=== PATIENT | male | born 1950 | race African-American/Black ===

== ENCOUNTER 2017-07-04 17:44 | Inpatient (IN) | payer MEDICAID, OTHER ==
[~2017-07-04] VITALS: Ht 172.7 cm; Wt 81.2 kg
--- NOTE | 2017-07-04 17:50 | NUR ---
PT BIBRA TO ER BED 12 C/O DIFFUSE ABDOMINAL PAIN W/ NAUSEA AND VOMITING X 2 DAYS. COFFEE GROUND EMESIS NOTED. GOWNED AND PLACED ON MONITOR. STABLE VITALS PATIENT PARTNER. AWAITING MD HONEYCUTT.
--- NOTE | 2017-07-04 17:56 | NUR ---
DR SCOTT AT BEDSIDE FOR EVAL.
[2017-07-04] MEDS ORDERED: ONDA4TAB5 PO (18:22)
[2017-07-04] MEDS ORDERED: BLOO-668 IN (18:22)
[2017-07-04] MEDS ORDERED: HYDR-548 PO (18:22)
[2017-07-04] MEDS ORDERED: CARV12.52 PO (18:22)
[2017-07-04] MEDS ORDERED: ACET-868 PO (18:22)
[2017-07-04] MEDS ORDERED: ZOLP10TA6 PO (18:22)
[2017-07-04] MEDS ORDERED: TRAM50TA2 PO (18:22)
--- NOTE | 2017-07-04 18:50 | NUR ---
PT TO RADIOLOGY FOR ABDOMINAL CT SCAN VIA [facility].
[2017-07-04 18:58] LABS: HEMATOCRIT 38 % (39-51); HEMOGLOBIN 11.9 g/dL (13.5-17.5); LYMPHOCYTES # (AUTO) 0.3 /CMM (0.8-4.8); LYMPHOCYTES % (AUTO) 2.2 % (20.0-44.0); MEAN CORPUSCULAR HEMOGLOBIN 28 PG (26.0-33.0); MEAN CORPUSCULAR HGB CONC 32 g/dl (31.0-36.0); MEAN CORPUSCULAR VOLUME 88 fL (80-96); MONOCYTES # (AUTO) 0.7 /CMM (0.1-1.30); MONOCYTES % (AUTO) 5.1 % (2.0-12.0); NEUTROPHILS # (AUTO) 11.9 /CMM (1.8-8.9); NEUTROPHILS % (AUTO) 92.7 % (43.0-81.0); PLATELET COUNT (AUTO) 261 /CMM (150-450); RDW COEFFICIENT OF VARIATION 13.8 (11.5-15.0); RED BLOOD CELL COUNT(AUTO) 4.26 MIL/uL (4.5-6.0); WHITE BLOOD COUNT (AUTO) 12.8 K/uL (4.3-11.0)
[2017-07-04] MEDS ORDERED: INSU100V7 SQ (19:06)
[2017-07-04] MEDS ORDERED: HUM10VIA SQ (19:06)
[2017-07-04] MEDS ORDERED: TAMS0.4C34 PO (19:08)
--- NOTE | 2017-07-04 19:08 | NUR ---
RADIOLOGY AT BEDSIDE FOR CHEST XRAY.
[2017-07-04 19:15] LABS: INR 0.97 (0.87-1.13); PROTHROMBIN TIME 10.1 SECS (9.5-12.7)
[2017-07-04 19:20] LABS: TROPONIN I 0.126 ng/mL (0.00-0.056)
[2017-07-04 19:22] LABS: BILIRUBIN,DIRECT 0.2 mg/dL (0.0-0.2); BILIRUBIN,TOTAL 0.8 mg/dL (0.2-1.0); CALCIUM, SERUM 9.3 mg/dL (8.5-10.1); CREATININE 2.5 mg/dL (0.6-1.3); TOTAL PROTEIN, SERUM 7.6 g/dL (6.4-8.2)
--- NOTE | 2017-07-04 19:54 | NUR ---
RT AT BEDSIDE FOR ABG DRAW.
--- NOTE | 2017-07-04 19:55 | NUR ---
VERIFIED INSULIN DOSE WITH EBENEZER JEFFERS
[2017-07-04 20:09] LABS: ABG BASE EXCESS -18.9 mmol/L; ABG OXYGEN SATURATION 95.5 % (92.0-98.5); ABG PCO2 22.6 mmHg (35.0-45.0); ABG PH 7.165 (7.350-7.450); ABG PO2 102.5 mmHg (75.0-100.0); AaDO2 20.2 mmHg; MetHb 0.4 % (0.0-1.5); O2Hb 94.2 % (94.0-97.0); SITE, ABG Right Radial; VENT MODE, BG Room Air
--- NOTE | 2017-07-04 20:10 | NUR ---
CALLED MACHINE MAINTENANCE SUPERVISOR FOR ICU BED.
--- NOTE | 2017-07-04 20:12 | NUR ---
ICU 255
--- NOTE | 2017-07-04 21:18 | NUR ---
REPORT GIVEN TO ED. PT AWAITING TRANSFER TO [facility].
--- NOTE | 2017-07-04 21:20 | NUR ---
IV ZOSYN NOT ADMINISTERED. ENDORSED TO ICU CHARGE NURSE ED.
[2017-07-04 21:54] LABS: MAGNESIUM 2.1 mg/dL (1.8-2.4); PHOSPHORUS 6.9 mg/dL (2.5-4.9)
[2017-07-04 22:00] VITALS: BP 109/67
--- NOTE | 2017-07-04 22:47 | NUR ---
STEEL SHOT HEADER OPERATOR. ADMISSION. RECEIVED THE PT FROM ER VIA [facility]. ADMITTING DIAGNOSIS DKA.PT IS LETHARGIC. INSULIN DRIP STARTED FROM ER. PT AWAKE, ALERT, FOLLOW COMMANDS. RN CALL CENTER SHOWING S TACH. RATE IS AT THIS TIME 113. IV RT EJ 20G. IVF NS 125ML/H FC PATENT. RT BKA,LT KNEE SCAB, LT FOOT AMPUTATION.WILL CONTINUE TO MONITOR VITALS.
[2017-07-04 22:53] VITALS: BP 114/60
[2017-07-04 23:00] VITALS: BP 115/81
[2017-07-05] VITALS (25 sets, daily range): BP systolic 90–128; BP diastolic 23–86
--- NOTE | 2017-07-05 01:49 | NUR ---
GUM SPRAYER. LAB CALLED FOR TROPONIN AND LACTIC ACID REPORT. RESULT DR LE MADE AWARE. NEW ORDER RECEIVED.
--- NOTE | 2017-07-05 01:51 | NUR ---
MUSICAL INSTRUMENT MECHANIC. EKG DONE PER MD ORDER
--- NOTE | 2017-07-05 02:00 | NUR ---
CASH REGISTER SERVICER. INSULIN DRIP ALGORITHM#3.
--- NOTE | 2017-07-05 02:37 | NUR ---
MARKET RESEARCH CONSULTANT. PT IS HEARD STICK. CALLADRIANA WRIGHT MD FOR CENTRAL LINE. DR LE ORDER HEPARIN DRIP.
--- NOTE | 2017-07-05 02:39 | NUR ---
CABLE ASSEMBLER AND SWAGER. ER MD BULOLCK INSERTED RT UPPER ARM ANGIO CATH PERIPHERAL IV 18G DURING PROCEDURE NO COMPLICATION NOTED. PROCEDURE PT TOLERATED WELL.HEPARIN DRIP STARTED PER PROTOCOL IV BOLUS HEPARIN 5000UNITS GIVEN PER MD ORDERED.
--- NOTE | 2017-07-05 02:59 | NUR ---
BANK MANAGER. AM CARE, LORAL CARE, BED BATH GIVEN. LINEN CHANGED, REMAINING SAME BIPAP SETTINGS TOLERATED WELL. SAT 98%. PERSONNEL ADMINISTRATOR SHOWING S TACH. RATE IS 105. IV RT HAND 20G. THO @5ML/H. HOB ELEVATED. FC PATENT, URINE DRAINING, AFEBRILE. WILL CONTINUE TO MONITOR VITALS. Addendum: 07/05/17 at 0307 by MARA COREA RN WRONG INFORMATION
--- NOTE | 2017-07-05 03:59 | NUR ---
BEHAVIORAL SCIENTIST. AM CARE. ORAL CARE, BED BATH GIVEN. LINEN CHANGED, OXYGEN 2L VIA NASAL CANNULA. SAT 98%, NO ACUTE DISTRESS NOTED. PATIENT FINANCIAL REPRESENTATIVE SHOWING S TACH. IV RT UPPER ARM 18G, RT EJ 20G. IVF NS 125ML/H, INSULIN DRIP PER ACCU CHECK. HEPARIN DRIP . 1000U/H HOB ELEVATED. TURN AND REPOSITION Q2H. WILL CONTINUE TO MONITOR VITALS. AFEBRILE, NPO.
--- NOTE | 2017-07-05 04:21 | NUR ---
BIKE SHOP MANAGER. INSULIN DRIP USING FROM 0400 ALGORITHM #2. BLOOD SUGAR NOW 255
[2017-07-05 04:36] LABS: BASOPHILS % (AUTO) 0.4 % (0.0-2.0); HEMATOCRIT 32 % (39-51); HEMOGLOBIN 10.8 g/dL (13.5-17.5); LYMPHOCYTES # (AUTO) 0.5 /CMM (0.8-4.8); LYMPHOCYTES % (AUTO) 5.2 % (20.0-44.0); MEAN CORPUSCULAR HEMOGLOBIN 29 PG (26.0-33.0); MEAN CORPUSCULAR HGB CONC 34 g/dl (31.0-36.0); MEAN CORPUSCULAR VOLUME 86 fL (80-96); MONOCYTES # (AUTO) 0.8 /CMM (0.1-1.30); MONOCYTES % (AUTO) 8.3 % (2.0-12.0); NEUTROPHILS # (AUTO) 8.1 /CMM (1.8-8.9); NEUTROPHILS % (AUTO) 86.1 % (43.0-81.0); PLATELET COUNT (AUTO) 231 /CMM (150-450); RDW COEFFICIENT OF VARIATION 13.6 (11.5-15.0); RED BLOOD CELL COUNT(AUTO) 3.75 MIL/uL (4.5-6.0); WHITE BLOOD COUNT (AUTO) 9.4 K/uL (4.3-11.0)
[2017-07-05 04:47] LABS: CALCIUM, SERUM 8.1 mg/dL (8.5-10.1); CREATININE 2.3 mg/dL (0.6-1.3); POTASSIUM 4.2 mmol/L (3.5-5.1)
[2017-07-05 05:31] LABS: TROPONIN I 18.39 ng/mL (0.00-0.056)
--- NOTE | 2017-07-05 06:16 | NUR ---
[facility] LAB CALLED FOR CRITICAL TROPONIN [phone] LE MADE AWARE. NEW ORDER RECEIVED.
--- NOTE | 2017-07-05 06:37 | NUR ---
LABOR ECONOMIST. INSULIN DRIP SCANNED AT 2353. {07/04/17} BLOOD SUGAR WAS 445. SPREAD SHEET DOCUMENTATION WRONG. STARTED INSULIN DRIP 7UNITS/H.
--- NOTE | 2017-07-05 07:45 | NUR ---
ICU/RN - Initial Notes Received pt in bed, alert and oriented x3. Respirations are even and unlabored, on O2 @ 2lpm via nasal cannula. Denies pain and chest pain at this time. On tele reading SR 99. Currently on Insulin gtt and Heparin as ordered. Salguero catheter intact draining urine to gravity. Pt kept NPO as ordered. IVF infusing well. Right BKA and Left AKA noted. Pt with right sided weakness (Hx CVA). Safety and comfort measures in place. Will continue to monitor pt closely.
--- NOTE | 2017-07-05 08:20 | NUR ---
ICU/RN - Notes PTT 60, no change in Heparin gtt rate per protocol. PTT ordered for tomorrow 07/06/17 at 0800 per protocol.
[2017-07-05 09:36] LABS: CREATININE 2.1 mg/dL (0.6-1.3); POTASSIUM 4.2 mmol/L (3.5-5.1)
[2017-07-05 11:20] LABS: APPEARANCE,URINE SL CLOUDY (CLEAR); BILIRUBIN,URINE 1+ (NEGATIVE); BLOOD, URINE 2+ Ery/uL (NEGATIVE); COLOR,URINE YELLOW (YELLOW); KETONES,URINE 1+ (NEGATIVE); LEUKOCYTE ESTERASE ,URINE NEGATIVE (NEGATIVE); NITRITE, URINE NEGATIVE (NEGATIVE); PH,URINE 5.5 (5.0-8.0); PROTEIN,URINE 1+ mg/dl (NEGATIVE); UGLUCOSE NEGATIVE (NEGATIVE); UROBILINOGEN,URINE 0.2 EU/dL (0.2)
[2017-07-05 11:32] LABS: BACTERIA,URINE Few /HPF (None Seen); SQUAMOUS EPITHELIAL CELL,UR Few /HPF (None Seen); WBC,URINE 0-2 /HPF (0-3)
--- NOTE | 2017-07-05 13:25 | NUR ---
ICU/RN - Notes Insulin gtt stopped as ordered by Dr Lagos. Pt ate lunch and was restarted on home insulin dosing as ordered - Novolin 70/30 15 units TID and Levemir 15 units daily. Latest blood sugar 200 mg/dL. Blood sugar check ordered change to every four hours. Will carry out and continue to monitor pt.
--- NOTE | 2017-07-05 15:13 | NUR ---
ICU/RN - Notes Around 1350, patient complained about sharp rectum pain on pain scale 10 out of 10, with facial grimacing and irritability. Rectum assessed with no issues found. Pt requested medication for pain medication initially, but upon preparing medication prior to administration, pt last minute refused, stating "I don't want Morphine." Pt's pain immediately subsided and disappeared shortly after statement. Morphine 2mg IVP never given. Medication wasted and witnessed by second RN. At this time pt has no other complaints of pain, resting comfortably in no distress.
--- NOTE | 2017-07-05 18:45 | NUR ---
ICU/RN - Notes Pt eating dinner in no acute distress.
--- NOTE | 2017-07-05 20:39 | NUR ---
received pt from day shift, a/o x4, follows commands, SR, on 2L 02 sat well, lungs clear, no edema, on heparin drip at 1000unit, no bleeding or bruises noted, f/c out per pt request, MD aware, tolerates diet, v/s stable, no pain, pt turned and repositioned.
[2017-07-06] VITALS (21 sets, daily range): BP systolic 73–161; BP diastolic 49–98
--- NOTE | 2017-07-06 00:17 | NUR ---
pt is resting in the bed, on heparin drip at 1000unit, v/s stable, no pain, pt turned and repositioned.
--- NOTE | 2017-07-06 04:21 | NUR ---
pt is resting in the bed, no acute distress overnight, on heparin drip at 1000unit, no bleeding noted, good urine output, v/s stable, no pain, pt cleaned, changed and repositioned q2hrs.
[2017-07-06 05:04] LABS: BASOPHILS % (AUTO) 0.2 % (0.0-2.0); EOSINOPHILS # (AUTO) 0.4 /CMM (0.0-0.7); EOSINOPHILS % (AUTO) 6.1 % (0.0-6.0); HEMATOCRIT 35 % (39-51); HEMOGLOBIN 11.4 g/dL (13.5-17.5); LYMPHOCYTES # (AUTO) 0.7 /CMM (0.8-4.8); LYMPHOCYTES % (AUTO) 10.2 % (20.0-44.0); MEAN CORPUSCULAR HEMOGLOBIN 29 PG (26.0-33.0); MEAN CORPUSCULAR HGB CONC 33 g/dl (31.0-36.0); MEAN CORPUSCULAR VOLUME 86 fL (80-96); MONOCYTES # (AUTO) 0.6 /CMM (0.1-1.30); MONOCYTES % (AUTO) 8.5 % (2.0-12.0); NEUTROPHILS # (AUTO) 5.3 /CMM (1.8-8.9); PLATELET COUNT (AUTO) 196 /CMM (150-450); RDW COEFFICIENT OF VARIATION 14.1 (11.5-15.0); RED BLOOD CELL COUNT(AUTO) 4.02 MIL/uL (4.5-6.0)
[2017-07-06 05:09] LABS: CALCIUM, SERUM 7.9 mg/dL (8.5-10.1); CREATININE 1.8 mg/dL (0.6-1.3); MAGNESIUM 1.8 mg/dL (1.8-2.4); PHOSPHORUS 2.9 mg/dL (2.5-4.9); POTASSIUM 3.9 mmol/L (3.5-5.1)
--- NOTE | 2017-07-06 07:10 | NUR ---
TRANSPORTER RADIOLOGY- RECEIVED PT A/O X4. ON 2L NC, RESPIRATIONS EVEN & UNLABORED, NO SOB OR DISTRESS PRESENT. BEDSIDE MONITOR REVEALS SINUS RHYTHM. PT CONTINENT OF URINE & STOOL, URINAL AT BEDSIDE. AMANDA MIDLINE RUNNING D5 1/2NS @ 100 MLS/HR AND HEPARIN GTT AT 1000 UNITS/HR. REJ 20G HL FLUSHED, PATENT AND INTACT. SAFETY MEASURES TAKEN: BED LOCKED AND IN LOW POSITION, SIDE RAILS UP X2, BED ALARM ON AND CALL LIGHT WITHIN REACH, WILL CONTINUE TO MONITOR.
--- NOTE | 2017-07-06 08:00 | NUR ---
HEALTH CARE LIAISON- PTT RESULT=54. NO CHANGES IN HEPARIN RATE. HEPARIN GTT CONTINUES AT 1000 UNITS/HOUR. WILL CONTINUE TO MONITOR.
--- NOTE | 2017-07-06 10:25 | NUR ---
SW received a call from ICU CRN Genoveva x [phone] informing SW that pt. is wanting to go AMA and wants to speak with the social media strategist. SW met with pt. bedside. Pt. is alert and oriented x4. Pt. appears to be upset stating that the doctor's did not communicate with him that he might need to transfer to another hospital. SW provided emotional support to pt. Pt. stated he wants to get the phone number to [facility] to change his doctor's appointment. DINH gave pt. [facility]'s contact number . Pt. seem to calm down and was appreciative to get the phone number.
--- NOTE | 2017-07-06 17:00 | NUR ---
TIRE VULCANIZER- SPOKE TO DR. VANN. PT STABLE FOR DOWNGRADE TO TELE. ORDER PLACED. WILL CONTINUE TO MONITOR.
--- NOTE | 2017-07-06 18:00 | NUR ---
ORTHOPEDIC PHYSICAL THERAPIST- REPORT GIVEN TO EDELMIRA SOL. PT TO TRANSFER TO TELE. 1845- PT TRANSFERRED TO TELE ROOM 114-1. ALL BELONGINGS SENT WITH PATIENT.
--- NOTE | 2017-07-06 20:00 | NUR ---
LATEX RIBBON MACHINE OPERATOR NOTE PT IN BED SITTING UP, A/O X 3, NO SOB, NO DISTRESS NOTED. BUT C/O PAIN IN RT HIP 01/12, BUT REFUSING TO TAKE ANY PAIN MED AT THIS TIME. ON TELE SR 97. ON HEPARIN DRIP 1000U/HR = 20 ML/HR AT RAC MIDLINE #18, NO S/S OF INFILTRATION NOTED. RIJ #20G S/L INTACT AND PATENT. SIDE RAILS UP X 2 AND CALL LIGHT WITHIN REACH. VSS. CONTINUE TO MONITOR HIM.
--- NOTE | 2017-07-06 21:00 | NUR ---
LEATHER CASE FINISHER NOTE DR VANN VISITED THE PT AND DISCUSSED WITH THE PT REGARDING ANGIO GRAM.
--- NOTE | 2017-07-06 21:20 | NUR ---
HOUSE CARPENTER NOTE PT REQUESTING FOR BENADRYL WHICH HELP HIM SLEEP. DR LE CALLED AND RECEIVED NEW ORDER, ORDER NOTED AND CARRIED OUT. BENADRYL 25 MG PO GIVEN FOR SLEEP WITH HS MEDS. ALSO GIVEN HS SNACKS.
--- NOTE | 2017-07-06 22:20 | NUR ---
MANAGER APPLICATION NOTE PT FALL BACK TO SLEEP, NO DISTRESS OR DISCOMFORT NOTED.
[2017-07-07] VITALS: BP 120/70
[2017-07-07 04:00] VITALS: BP 143/86
--- NOTE | 2017-07-07 06:36 | NUR ---
OPTICAL FABRICATION TECHNICIAN NOTE PT IN BED ASLEEP, AROUSABLE. NO DISTRESS OR DISCOMFORT NOTED. DENIES PAIN. HEPARIN DRIP INFUSING WELL 20 ML/HR = 1000UNITS /HR. .ALSO GETTING D5 1/2 NS AT 100 ML/HR, NO S/S OF INFILTRATION NOTED. ON TELE SR HR 85. SIDE RAILS UP X 2 AND CALL LIGHT WITHIN REACH. WILL ENDORSE TO DAY SHIFT NURSE FOR CONTINUE TO CARE.
[2017-07-07 07:43] LABS: BASOPHILS % (AUTO) 0.2 % (0.0-2.0); EOSINOPHILS # (AUTO) 0.6 /CMM (0.0-0.7); EOSINOPHILS % (AUTO) 10.8 % (0.0-6.0); HEMATOCRIT 38 % (39-51); HEMOGLOBIN 12.4 g/dL (13.5-17.5); LYMPHOCYTES # (AUTO) 1.1 /CMM (0.8-4.8); LYMPHOCYTES % (AUTO) 22.2 % (20.0-44.0); MEAN CORPUSCULAR HEMOGLOBIN 28 PG (26.0-33.0); MEAN CORPUSCULAR HGB CONC 33 g/dl (31.0-36.0); MEAN CORPUSCULAR VOLUME 86 fL (80-96); MONOCYTES # (AUTO) 0.7 /CMM (0.1-1.30); MONOCYTES % (AUTO) 13.4 % (2.0-12.0); NEUTROPHILS # (AUTO) 2.7 /CMM (1.8-8.9); NEUTROPHILS % (AUTO) 53.4 % (43.0-81.0); PLATELET COUNT (AUTO) 190 /CMM (150-450); RDW COEFFICIENT OF VARIATION 13.5 (11.5-15.0); RED BLOOD CELL COUNT(AUTO) 4.39 MIL/uL (4.5-6.0); WHITE BLOOD COUNT (AUTO) 5.1 K/uL (4.3-11.0)
[2017-07-07 07:55] LABS: CALCIUM, SERUM 8.3 mg/dL (8.5-10.1); CREATININE 1.6 mg/dL (0.6-1.3); MAGNESIUM 1.5 mg/dL (1.8-2.4); PHOSPHORUS 3.1 mg/dL (2.5-4.9); POTASSIUM 4.3 mmol/L (3.5-5.1)
[2017-07-07 08:00] VITALS: BP 143/82
--- NOTE | 2017-07-07 08:00 | NUR ---
INITIAL APPEALS COORDINATOR NOTE RECEIVED PT IN BED SLEEPING , PT IS HOWEVER A/O X 3 UPON INTRODUCTION , NO SOB, NO DISTRESS NOTED.NO PAIN STATED AT THIS TIME. ON HEPARIN DRIP 1000U/HR = 20 ML/HR AT RAC MIDLINE #18, NO S/S OF INFILTRATION NOTED. RIJ #20G S/L INTACT AND PATENT. SIDE RAILS UP X 2 AND CALL LIGHT WITHIN REACH. RN WILL CONTINUE TO MONITOR PATIENT THROUGHOUT THE DAY
--- NOTE | 2017-07-07 10:09 | NUR ---
Rn Note Rn asked charge nurse Isabell about completing core measures for nonstemi patient advised to complete the chest pain section - rn complete information to the best of her knowledge with the help of the charge nurse
[2017-07-07 12:00] VITALS: BP 145/90
[2017-07-07 16:00] VITALS: BP 127/79
--- NOTE | 2017-07-07 16:37 | NUR ---
RN NOTE LOUISE GONZALEZ SPOKE WITH PATIENT IN REGARDS TO CHANGING INSULIN COVERAGE DUE TO CURRENT PLAN COVERAGE NOT BEING ADEQUATE PATIENT REFUSES TO CHANGE CURRENT PLAN PATIENT INSIST ON SPEAKING WITH MD BOJORQUEZ IN REGARDS TO LEAVING , PLAN OF CARE DISCUSSED WITH THE PATIENT VIA RN AND LOUISE GONZALEZ HOWEVER PATIENT IS NOT OK WITH RESPONSE FROM EITHER CONSTITUTION PARTY. MD BOJORQUEZ STATES HE WILL CONTACT PATIENT PRIOR TO LEAVING FLOOR TODAY PATIENT UPDATED
--- NOTE | 2017-07-07 18:44 | NUR ---
RN NOTE PATIENT STABLE THROUGHOUT THE SHIFT MULTIPLE COMPLAINTS NOTED , PATIENT REQUESTING TO LEAVE AFTER KIDNEY FUNCTION NORMALIZE , HOWEVER PATIENT IS STABLE NO SOB NOTED PATIENT OOK NASAL CANULA OFF , PATIENT IS CURRENTLY IN BED RESTING ALL NEEDS ATTENDED , RN WILL ENDORSE CONTINUATION OF CARE.
--- NOTE | 2017-07-07 19:12 | NUR ---
RN NOTE PATIENT HEPARIN BAG CHANGED AND 2 NURSE VERIFIED
[2017-07-07 20:00] VITALS: BP_SYST 132; BP_SYST 136; BP_DIAS 86
[2017-07-08] VITALS: BP 113/70
[2017-07-08 04:00] VITALS: BP 116/82
[2017-07-08 08:00] VITALS: BP 144/68
[2017-07-08 12:00] VITALS: BP 142/90
--- NOTE | 2017-07-08 13:19 | NUR ---
RN NOTE EARL GONZALEZ AT NURSES STATION MADE AWARE PATIENT WANTS TO SPEAK TO HIM ABOUT MEDICATION REGIMEN. CURATORIAL SPECIALIST ALSO AWARE OF BLOOD SUGAR RESULT TODAY. CURRENTLY PATIENT RESTING IN BED COMFORTABLE, HEPARIN DRIP CONTINUED. NO BLEEDING NOTED AFTER ASSESSING ALL ORIFICES. NO NEW BRUISING.
[2017-07-08 16:00] VITALS: BP 96/63
[2017-07-08 20:00] VITALS: BP 133/79
--- NOTE | 2017-07-08 20:00 | NUR ---
COMMISSION CLERK NOTES RECEIVED PTS ON BED AWAKE ALERT ANS RESPONSIVE ABLE TO MAKE NEEDS KNOWN , ON R/A SATING 98%NO SOB NO DISTRESS NOTED, ON TELE SR ON THE MONITOR , ON IVF OF RAC G%20 WITH HEPARIN DRIP AT 23ML /HR 1150 UNITS , INFUSING WELL. LAST APTT ENDORSE IS 48 -NO CHANGE , TO DO APTT IN AM (5AM)V/S STABLE AFEBRILE.DUE MEDS GIVEN ORDERED ALL NEEDS ATTENDED TOO CALL LIGHT WITHIN REACH , KEPT PTS CLEAN DRY AND COMFORTABLE.WILL CONTINUE TO MONITOR PTS.
--- NOTE | 2017-07-08 20:30 | NUR ---
COOK SHIP NOTES BLOOD SUGAR FOR 2000HRS IS 153 MG/DL NO COVERAGE GIVEN.
[2017-07-09] VITALS (7 sets, daily range): BP systolic 89–129; BP diastolic 53–87
--- NOTE | 2017-07-09 04:34 | NUR ---
FABRIC AND ACCESSORIES ESTIMATOR NOTES IV HEPLOCK REINSERTED ON LFA WITH G#20 INTACT AND PATENT .AT 1AM BLOOD SUGAR CHECK IS 156 MG/DL NO COVERAGE GIVEN . PTS V/S STABLE /AFEBRILE NO COMPLAIN OF PAIN NOTED , WILL CONTINUE TO MONITOR PTS.
--- NOTE | 2017-07-09 05:00 | NUR ---
telegraph office route aide notes blood sugar for 5am is 170mg/dl no coverage given , pts remains on heparin drip at 1150 units/23ml/hr , awaiting for 5am appt result will endorse to rn day shift for continuity of care.
[2017-07-09 07:14] LABS: CALCIUM, SERUM 8.7 mg/dL (8.5-10.1); CREATININE 1.6 mg/dL (0.6-1.3); POTASSIUM 4.6 mmol/L (3.5-5.1)
--- NOTE | 2017-07-09 08:08 | NUR ---
INITIAL INDUSTRIAL CUSTODIAN NOTE RECEIVED PT IN BED AWAKE AND ALERT X 3 UPON , NO SOB, NO DISTRESS NOTED.NO PAIN STATED AT THIS TIME. ON HEPARIN DRIP 1000U/HR = 23 ML/HR AT LFA 20G, NO S/S OF INFILTRATION NOTED. RIJ #20G S/L INTACT AND PATENT. SIDE RAILS UP X 2 AND CALL LIGHT WITHIN REACH. RN WILL CONTINUE TO MONITOR PATIENT THROUGHOUT THE DAY
--- NOTE | 2017-07-09 10:52 | NUR ---
RN NOTE RN RECEIVED CALL FROM PHARMACY IN REGARDS TO ORDERING HEPARIN BOLUS FOR PATIENT , HEPARIN BOLUS 4800 ORDERED AND RATE CHANGED TO 1400ML/HR. CHARGE NURSE HELPED ASSESS WITH BOLUS ORDERING AND RATE CHANGE , RN WILL CONTINUE TO FOLLOW.
--- NOTE | 2017-07-09 18:40 | NUR ---
RN NOTE PHARMACIST CAME IN TO CHECK THE PATIENTS HEPARIN DRIP, DRIP CURRENTLY RUNNING HOWEVER PATIENT PTT HAS DECREASED TO 26 . PHARMACIST ASK QUESTION IN REGARD TO MEDICATION BEING HELP RN INFORMED PHARMACIST THAT HEPARIN HELD FOR APPROXIMATELY 15-20MIN TO ALLOW PATIENT BATHROOM PRIVILEGES DUE DUE TO PATIENT COMPLAINING OF LACK OF BM FOR 4 DAYS , PATIENT INITIAL STICK PATIENT WAS STUCK ON LEFT ARM UNDER IV SITE , WHILE HEPARIN DRIP WAS OFF FOR THE 15-20 MINS. NEW PTT LEVEL DRAWN AWAITING LABS . ALSO NOTED PATIENT HEPARIN RUNNING THROUGH NEW PERIPHERAL LINE ON LEFT FORE ARM PREVIOUS TO TODAY PATIENT HEPARIN RAN ON RIGHT MIDLINE , RN NOTIFIED PHARMACIST AND ALSO THE CHARGE NURSE . RN WILL SWITH THE INFUSION SITE CURRENTLY . PATIENT HAS NO SIGNS OF INFILTRATION OR PAIN NOTED
--- NOTE | 2017-07-09 18:53 | NUR ---
EMBOSSING CLERK CLOSING NOTE PATIENT STABLE THROUGHOUT THE DAY NO COMPLAINTS EXPRESSED PATIENT SEAT UP IN WHEELCHAIR, ALSO WENT TO THE BATHROOM FOR BM AFTER 4 DAY OF CONSTIPATION. PATIENT EXPRESS FEELING BETTER. PATIENT IN BED AWAKE AND ALL NEEDS MEET RN WILL CONTINUE TO FOLLW INDEPENT IN BED MOBLITY , RN WILL ENDORSE TO PM RN.
--- NOTE | 2017-07-09 19:30 | NUR ---
METER ENGINEER INITIAL NOTES RECEIVED PATIENT AWAKE A/OX3, SITTING AT EDGE OF BED, ABLE TO MAKE NEEDS KNOWN. DENIES PAIN OR DISCOMFORT AT THIS TIME. DENIES SOB. ON TELE MONITOR SR. NO S/S OF BLEEDING NOTED AT THIS TIME. SKIN WARM AND DRY TO TOUCH. WITH HEPARIN DRIP AT 1650 UNITS/HR. SIDE RAILS UP AND LOCKED. BED KEPT AT LOWEST POSITION. CALL LIGHT KEPT WITHIN EASY REACH. WILL CONTINUE TO MONITOR.
--- NOTE | 2017-07-09 19:57 | NUR ---
RN NOTE PATIENT PTT 25 BOLUS 4800 ORDERED AND INCREASED RATE TO 1650 2 NURSE VERIFY , MISHEL RN INFORMED PM RN TO NOTIFIED PATIENT PROVIDER OF THIS DERCREASED PTT, CHARGE NURSE SOON AWARE.
--- NOTE | 2017-07-09 20:07 | NUR ---
RN NOTE RN CONTACTED GRANTS AND CONTRACTS ASSISTANT EARL GONZALEZ AN INFORMED HIM OF PATIENT PTT LEVEL AND THE INCREASE IN HEPARIN DRIP ALONG WITH 4800 BOLUS, GRANTS AND CONTRACTS ASSISTANT ACKNOWLEDGED UNDERSTANDING AND AGREE WITH ORDERS PM RN NOTIFIED CHARGE NURSE SOON NOTIFIED
--- NOTE | 2017-07-09 20:50 | NUR ---
CASH GRAIN GROWER NOTES PATIENT C/O PAIN AT IV SITE, NOTED INFILTRATION. HEPARIN DRIP STOPPED, ARM ELEVATED. WILL CONTINUE TO MONITOR.
--- NOTE | 2017-07-09 22:53 | NUR ---
AMANDA MIDLINE PLACED PATENT AND INTACT, HEPARIN DRIP RESTARTED.
[2017-07-10] VITALS: BP 123/87
[2017-07-10 03:40] LABS: CALCIUM, SERUM 8.7 mg/dL (8.5-10.1); CREATININE 1.8 mg/dL (0.6-1.3); POTASSIUM 4.1 mmol/L (3.5-5.1)
[2017-07-10 04:00] VITALS: BP 122/77
--- NOTE | 2017-07-10 04:00 | NUR ---
RECEIVED CRITICAL PTT 109. HEPARIN DRIP STOPPED AT THIS TIME PER PROTOCOL.
[2017-07-10 04:23] LABS: TROPONIN I 0.601 ng/mL (0.00-0.056)
--- NOTE | 2017-07-10 07:15 | NUR ---
GEOSPATIAL SCIENTIST NOTE: RECEIVED PT AWAKE IN BED, A&OX3, DENIES PAIN. ON TELE MONITOR WITH SR AND HR 83. AMANDA MIDLINE PATENT AND INTACT WITH HEPARIN RUNNING. BED LOW, LOCKED, X2 SIDE RAILS UP AND CALL LIGHT WITHIN REACH. WILL CONT TO MONITOR.
--- NOTE | 2017-07-10 07:43 | NUR ---
OPENER VERIFIER PACKER CUSTOMS CLOSING NOTES NO SIGNIFICANT CHANGES OVERNIGHT. ALL NEEDS ANTICIPATED AND MET. DENIES SOB. DENIES PAIN OR DISCOMFORT. SKIN WARM AND DRY TO TOUCH. WITH AMANDA MIDLINE HEPARIN GTT AT 1400 U/H. SR ON TELE MONITOR. SIDE RAILS UP AND LOCKED. BED KEPT AT LOWEST POSITION. CALL LIGHT KEPT WITHIN EASY REACH. CONTINUITY OF CARE ENDORSED TO AM NURSE.
[2017-07-10 08:00] VITALS: BP 116/64
[2017-07-10 12:00] VITALS: BP 112/65
--- NOTE | 2017-07-10 12:23 | NUR ---
DEICER REPAIRER ELECTRIC NOTE: EARL GONZALEZ-LOUISE SEEN PATIENT AT BEDSIDE. PLAN TO TRANSFER TO [facility] ON Thursday07/13/17. AWARE OF TROPONIN 0.601, PTT 92, BUN 40 AND CR 1.8. NO NEW ORDERS.
[2017-07-10 16:00] VITALS: BP 95/65
--- NOTE | 2017-07-10 19:00 | NUR ---
PM HEAD COOK NOTE: NO ACUTE CHANGES DURING SHIFT. PATIENT A&OX3, DENIED PAIN. ON TELE MONITOR. AMANDA MIDLINE PATENT AND INTACT. ORDERS CARRIED OUT. BED LOW, LOCKED, X2 SIDE RAILS UP AND CALL LIGHT WITHIN REACH. WILL ENDORSE TO TECHNICIAN SUBMARINE CABLE EQUIPMENT NURSE FOR JASSI.
--- NOTE | 2017-07-10 19:24 | NUR ---
MED NOTE: DR. EDWAR GUERRERO'Radhika HEPARIN GTT. VERIFIED WITH PHARMACIST. NGUYEN GUERRERO'Radhika. WILL CONTINUE TO MONITOR. PT RECEIVING ASA DAILY AND LIPITOR DAILY FOR CARDIAC.
[2017-07-10 19:30] LABS: INR 0.94 (0.87-1.13); PROTHROMBIN TIME 9.8 SECS (9.5-12.7)
[2017-07-10 20:00] VITALS: BP 128/67
[2017-07-11] VITALS: BP 140/77
[2017-07-11 04:00] VITALS: BP 137/76
--- NOTE | 2017-07-11 05:15 | NUR ---
TELE-1/CONTRACT ACCOUNTANT PT POC BLOOD GLUCOSE 66. PT GIVEN 2 APPLE JUICES WITH ADDED SUGAR. PT DRANK THE JUICE. PT IS ASYMPTOMATIC FOR HYPOGLYCEMIA. WILL RECHECK POC GLUCOSE SHORTLY.
--- NOTE | 2017-07-11 07:00 | NUR ---
WHEY DEPARTMENT OPERATOR NOTE: RECEIVED PT AWAKE IN BED, A&OX3, DENIES PAIN. ON TELE MONITOR WITH SR, HR 87. ON RA, RESPIRATIONS EVEN AND UNLABORED WITH NO SOB NOTED. AMANDA MIDLINE PATENT AND INTACT. BED LOW, LOCKED, X2 SIDE RAILS UP AND CALL LIGHT WITHIN REACH. WILL CONT TO MONITOR.
[2017-07-11 08:00] VITALS: BP 123/73
[2017-07-11 12:00] VITALS: BP 148/85
--- NOTE | 2017-07-11 14:07 | NUR ---
DISTRIBUTION LINEMAN NOTE: INITIAL BLOOD SUGAR ACUCHECK UNDETECTABLE DUE TO HIGH LEVEL. REPEAT BS 512 MG/DL. CHARGE NURSE NOTIFIED AND STAT GLUCOSE RANDOM ORDERED. HUMULIN 70/30 GIVEN SCHEDULED. PATIENT ASYMPTOMATIC. LEFT MESSAGE WITH [employer] FOR EARL ESPANA TO RETURN CALL TO NOTIFY OF RESULTS; [phone].
[2017-07-11 16:00] VITALS: BP 138/78
--- NOTE | 2017-07-11 16:30 | NUR ---
SWEET GOODS MACHINE OPERATOR NOTE: MODERATE SLIDING SCALE ORDERED BY EARL HALL NP. WILL CONT TO MONITOR.
--- NOTE | 2017-07-11 18:32 | NUR ---
patient always removing tele, notified and ok to d/c telemetry.
--- NOTE | 2017-07-11 19:00 | NUR ---
MS RN NOTE: BLOOD GLUCOSE LEVELS MANAGED ORDERED. AMANDA MIDLINE PATENT AND INTACT. ON RA WITH NO SOB NOTED. ORDERS CARRIED OUT. BED LOW, LOCKED, X2 SIDERAILS UP AND CALL LIGHT WITHIN REACH. WILL ENDORSE TO MILD DISABILITIES TEACHER NURSE FOR JASSI.
[2017-07-11 20:00] VITALS: BP 123/72
--- NOTE | 2017-07-12 01:16 | NUR ---
MED NOTES: DUPLICATE ORDERS FOR ACCU CHECK. Q4H DC'D. PT ON ACHS WITH SLIDING SCALE.
[2017-07-12 04:00] VITALS: BP 113/62
--- NOTE | 2017-07-12 07:48 | NUR ---
MANAGER MEDICARE NOTE: RECEIVED PT AWAKE IN BED, A&OX3, DENIES PAIN. ON TELE MONITOR WITH SR, HR 87. ON RA, RESPIRATIONS EVEN AND UNLABORED WITH NO SOB NOTED. AMANDA MIDLINE PATENT AND INTACT. BED LOW, LOCKED, X2 SIDE RAILS UP AND CALL LIGHT WITHIN REACH. WILL CONT TO MONITOR.
[2017-07-12 08:00] VITALS: BP 130/74
[2017-07-12 12:00] VITALS: BP 132/74
[2017-07-12 16:00] VITALS: BP 101/59
[2017-07-12 20:00] VITALS: BP 139/83
[2017-07-13 04:01] VITALS: BP 108/64
--- NOTE | 2017-07-13 06:26 | NUR ---
END OF SHIFT SUMMERY: PT IS A&O X 4. IN A STABLE CONDITION. DENIES PAIN. NO EPISODES OF N/V. NO ACUTE RESPIRATORY/CARDIAC DISTRESS NOTED. PATIENT IS NPO AFTER MIDNIGHT FOR PROCEDURE TODAY. THE LATEST BLOOD SUGAR READING IS 207 , INSULIN COVERAGE IS NOT GIVEN BECAUSE PATIENT IS NPO, CHARGE NURSE IS AWARE. WILL CONTINUE TO MONITOR AND ENDORSE PATIENT TO NEXT NURSE TO CONTINUE THE CARE.
[2017-07-13 07:12] LABS: BASOPHILS # (AUTO) 0.1 /CMM (0.0-0.2); BASOPHILS % (AUTO) 1.3 % (0.0-2.0); EOSINOPHILS # (AUTO) 0.3 /CMM (0.0-0.7); EOSINOPHILS % (AUTO) 3.8 % (0.0-6.0); HEMATOCRIT 37 % (39-51); HEMOGLOBIN 12.3 g/dL (13.5-17.5); LYMPHOCYTES # (AUTO) 1.9 /CMM (0.8-4.8); LYMPHOCYTES % (AUTO) 27.4 % (20.0-44.0); MEAN CORPUSCULAR HEMOGLOBIN 29 PG (26.0-33.0); MEAN CORPUSCULAR HGB CONC 33 g/dl (31.0-36.0); MEAN CORPUSCULAR VOLUME 86 fL (80-96); MONOCYTES # (AUTO) 0.8 /CMM (0.1-1.30); MONOCYTES % (AUTO) 11.9 % (2.0-12.0); NEUTROPHILS # (AUTO) 3.9 /CMM (1.8-8.9); NEUTROPHILS % (AUTO) 55.6 % (43.0-81.0); PLATELET COUNT (AUTO) 163 /CMM (150-450); RDW COEFFICIENT OF VARIATION 13.5 (11.5-15.0); RED BLOOD CELL COUNT(AUTO) 4.32 MIL/uL (4.5-6.0)
--- NOTE | 2017-07-13 07:20 | NUR ---
RN INITIAL NOTES: REC'D PT AWAKE ON BED, NOT IN ANY DISTRESS, A/O X4, ABLE TO MAKE NEEDS KNOWN. PT ON ROOM AIR, NO SOB. HAS AMANDA MIDLINE, SL, FLUSHED, PATENT & INTACT W/ NO S/SX OF INFECTION OR INFILTRATION NOTED. PT WAS ON NPO POST MIDNIGHT DUE TO POSSIBLE TRANSFER TO [facility] FOR CARDIAC CATH. PROVIDED COMFORT & SAFETY MEASURES. BED KEPT LOW & IN LOCKED POS. CALL LIGHT W/IN REACH. WILL CONTINUE TO MONITOR AND ATTEND NEEDS OF THE PT.
[2017-07-13 07:31] LABS: CREATININE 1.9 mg/dL (0.6-1.3)
[2017-07-13 08:00] VITALS: BP 113/68
[2017-07-13 08:36] LABS: INR 0.94 (0.87-1.13); PROTHROMBIN TIME 9.8 SECS (9.5-12.7)
--- NOTE | 2017-07-13 09:30 | NUR ---
RN NOTES: PER CN SHE WAS ABLE TO SPOKE W/ JUAN CM THAT PT WILL NOT BE TRANSFERRED TODAY. PT MADE AWARE AND WANTED TO SPEAK W/ CM WELL MD.
--- NOTE | 2017-07-13 10:30 | NUR ---
RN NOTES: EARL GIL MADE AWARE THAT TRANSFER TO HOSPITAL IS CANCELLED TODAY PER JUAN HEALY. TRANSFER IS POSSIBLE TOMORROW.
[2017-07-13 10:59] LABS: EOSINOPHILS % (MANUAL) 1 % (0-4); LYMPHOCYTES % (MANUAL) 29 % (16-48); MONOCYTES % (MANUAL) 15 % (0-11.0); NEUTROPHILS % (MANUAL) 55 (42-76)
[2017-07-13 16:00] VITALS: BP 110/61
--- NOTE | 2017-07-13 19:00 | NUR ---
RN CLOSING NOTES: NO ACUTE CHANGES NOTED W/IN SHIFT. PT TOLERATED ROOM AIR, NO SOB. AMANDA MIDLINE, KEPT PATENT & INTACT W/ NO S/SX OF INFECTION OR INFILTRATION NOTED, IVF NS X 100 CC/HR STARTED INFUSING WELL. PT REMINDED NPO POST MIDNIGHT DUE TO POSSIBLE TRANSFER TO [facility] FOR CARDIAC CATH TOMORROW. KEPT WELL RESTED. NEEDS ATTENDED. BED KEPT LOW & IN LOCKED POS. CALL LIGHT W/IN REACH. ENDORSE TO PM RN FOR JASSI.
--- NOTE | 2017-07-13 19:33 | NUR ---
RN MS INITIAL NOTE PT RECEIVED IN NO ACUTE DISTRESS. PT IS ALERT AND ABLE TO MAKE NEEDS KNOWN. PT WILL BE NPO AT MIDNIGHT DUE TO POSSIBLE TRANSFER TO [facility] THAT IS CLEAN DRY AND INTACT. COMFORT AND SAFETY MEASURES TO BE PLACED.
[2017-07-13 20:00] VITALS: BP 134/77
--- NOTE | 2017-07-13 21:52 | NUR ---
RN NOTE BS WAS 69 FOR 2200 ACCUCHECK. GAVE PT JUICE AND CRACKERS. WILL CHECK BEFORE GOING NPO AT MIDNIGHT
[2017-07-14 04:00] VITALS: BP 136/79
--- NOTE | 2017-07-14 05:46 | NUR ---
RN MS CLOSING NOTE PT REMAINS IN NO ACUTE DISTRESS AT THIS TIME. PT HAS BEEN NPO SINCE MIDNIGHT DUE TO POSSIBLE TRANSFER TO [facility] FOR CARDIAC CATH. ALL DUE MEDICATIONS GIVEN ORDERED AND TOLERATED. WOUND CARE NEEDED. WILL ENDORSE CARE TO AM NURSE.
[2017-07-14 07:39] LABS: CALCIUM, SERUM 8.9 mg/dL (8.5-10.1); CREATININE 1.9 mg/dL (0.6-1.3); POTASSIUM 5.3 mmol/L (3.5-5.1)
[2017-07-14 12:00] VITALS: BP 136/79
[2017-07-14 20:00] VITALS: BP 109/66
--- NOTE | 2017-07-14 20:00 | NUR ---
RN INITIAL NOTES; PT ON THE BED WITHOUT ANY DISTRESS, PT IS ALERT/ORIENTED X 4 . BREATHING EVEN AND UNLABORED ON ROOM AIR , AMANDA MIDLINE INTACT AND PATENT . CONTINENT TO BOWEL/BLADDER . BED IN THE LOWEST/LOCKED POSITION . SAFETY MEASURES APPLIED .CALL LIGHT WITHIN REACH . WILL CONTINUE TO MONITOR .
--- NOTE | 2017-07-14 21:30 | NUR ---
RN NOTE; NOTED BS 37 MG/DL , PT IS STILL ALERT/ORIENTED , ASYMPTOMATIC , IV DEXTROSE 50% GIVEN ORDERED , PT IS ENCOURAGED TO DRINK ORANGE JUICE AND EAT . RECHECKED BS 289 MG/DL . WILL CONTINUE TO MONITOR .
[2017-07-15 04:00] VITALS: BP 137/82
--- NOTE | 2017-07-15 05:30 | NUR ---
RN NOTE; RECEIVED PHONE CALL FROM [facility] [employer] [employer] [facility] ASKING FOR PATIENTS INFORMATION ( H&P , EKG, V/S AND CONSULTS NOTE, ) FAXED TO NUMBER [phone]. CHARGE NURSE JENNIFER MACKEY.
--- NOTE | 2017-07-15 06:55 | NUR ---
RN EOS NOTE; PT REMAINED STABLE DURING THE SHIFT, NO ANY DISTRESS NOTED. BS WITHIN NORMAL RANGE AT THIS TIME . ASSIST NEEDED . WILL ENDORSE TO NEXT SHIFT RN FOR CONTINUITY OF CARE.
--- NOTE | 2017-07-15 07:05 | NUR ---
RN INITIAL NOTE PATIENT RECEIVED IN BED, AWAKE, ALERT AND ORIENTED. ABLE TO MAKE NEEDS KNOWN. NO S/S OF PAIN OR DISCOMFORT. DENIES PAIN AT THIS TIME. RESPIRATIONS ARE EVEN AND UNLABORED. SATING WELL ON ROOM AIR. NO S/S OF RESPIRATORY DISTRESS OR SOB. SKIN IS WARM AND DRY TO TOUCH. IV SITE FLUSHED, PATENT. PATIENT ON NPO STATUS AWAITING PENDING CARDIAC PROCEDURE. SAFETY PRECAUTIONS IMPLEMENTED, BED IN LOCKED, LOW POSITION WITH TWO SIDE RAILS UP. CALL LIGHT AND BELONGINGS WITHIN EASY REACH. WILL MONITOR CLOSELY.
[2017-07-15 07:44] LABS: BASOPHILS % (AUTO) 0.5 % (0.0-2.0); EOSINOPHILS # (AUTO) 0.3 /CMM (0.0-0.7); EOSINOPHILS % (AUTO) 5.8 % (0.0-6.0); HEMATOCRIT 37 % (39-51); HEMOGLOBIN 12.3 g/dL (13.5-17.5); LYMPHOCYTES # (AUTO) 1.6 /CMM (0.8-4.8); LYMPHOCYTES % (AUTO) 28.3 % (20.0-44.0); MEAN CORPUSCULAR HEMOGLOBIN 28 PG (26.0-33.0); MEAN CORPUSCULAR HGB CONC 33 g/dl (31.0-36.0); MEAN CORPUSCULAR VOLUME 86 fL (80-96); MONOCYTES # (AUTO) 0.7 /CMM (0.1-1.30); MONOCYTES % (AUTO) 13.1 % (2.0-12.0); NEUTROPHILS % (AUTO) 52.3 % (43.0-81.0); PLATELET COUNT (AUTO) 214 /CMM (150-450); RDW COEFFICIENT OF VARIATION 14.1 (11.5-15.0); RED BLOOD CELL COUNT(AUTO) 4.34 MIL/uL (4.5-6.0); WHITE BLOOD COUNT (AUTO) 5.7 K/uL (4.3-11.0)
[2017-07-15 08:00] VITALS: BP 127/78
[2017-07-15 08:00] LABS: CALCIUM, SERUM 8.9 mg/dL (8.5-10.1); CREATININE 1.7 mg/dL (0.6-1.3); MAGNESIUM 1.8 mg/dL (1.8-2.4); PHOSPHORUS 3.8 mg/dL (2.5-4.9); POTASSIUM 5.1 mmol/L (3.5-5.1)
[2017-07-15 08:24] VITALS: BP 127/78
--- NOTE | 2017-07-15 11:00 | NUR ---
RN CLOSING NOTE PATIENT TRANSFERRED TO [facility]. CALLED REPORT TO ADRIAN OSCAR. PATIENT LEFT VIA AMBULANCE.
--- NOTE | 2017-07-15 17:12 | NUR ---
PER CAITLIN PRES PATIENT NOT COMING BACK R/T STENT PLACEMENT.
== END 2017-07-15 14:58 | disposition short-term general hospital (02) | DRG 420 ==
LOC: ER 17:46 → ICU 21:42 → TELE1 07-06 18:35 → MEDSG1 07-11 18:46
PROC: 05H533Z Insertion of Infusion Device into Right Subclavian Vein, Percutaneous Approach (ICD-10-PCS; principal; 2017-07-11)
PROC: B546ZZA Ultrasonography of Right Subclavian Vein, Guidance (ICD-10-PCS; principal; 2017-07-11)
DX: E10.10 Type 1 diabetes mellitus with ketoacidosis without coma (principal); N17.0 Acute kidney failure with tubular necrosis; I21.4 Non-ST elevation (NSTEMI) myocardial infarction; E87.1 Hypo-osmolality and hyponatremia; E83.39 Other disorders of phosphorus metabolism; E86.0 Dehydration; E87.5 Hyperkalemia; I25.10 Atherosclerotic heart disease of native coronary artery without angina pectoris; N18.9 Chronic kidney disease, unspecified; I12.9 Hypertensive chronic kidney disease with stage 1 through stage 4 chronic kidney disease, or unspecified chronic kidney disease; Z91.14 Patient's other noncompliance with medication regimen; Z89.511 Acquired absence of right leg below knee; Z89.512 Acquired absence of left leg below knee; Z79.4 Long term (current) use of insulin; K76.0 Fatty (change of) liver, not elsewhere classified; D64.9 Anemia, unspecified; E10.22 Type 1 diabetes mellitus with diabetic chronic kidney disease; Z79.899 Other long term (current) drug therapy; D72.829 Elevated white blood cell count, unspecified; R91.8 Other nonspecific abnormal finding of lung field; E10.51 Type 1 diabetes mellitus with diabetic peripheral angiopathy without gangrene
CPT/HCPCS: 36415; 36569; 36600; 71010-TC; 80048-TC; 80076-TC; 80305; 81000-TC; 82803-TC; 82945-TC; 82962-TC; 83605-TC; 83690-TC; 83735-TC; 84100-TC; 84484-TC; 85025-TC; 85610-TC; 85730-TC; 86850-TC; 87081-TC; 93307-TC; A4606; J1644; J1650; J1815; J2270; J2405; J2543; J3475; J3490; J7030; J7040; J7050; J7060; Q0163; Z7610